=== PATIENT | male | born 1975 | race Caucasian/White ===

== ENCOUNTER → 2018-08-12 | Outpatient (REF) ==
--- NOTE | 2018-08-12 10:47 | REP ---
PARTIAL LUMBAR SPINE, THREE VIEWS: HISTORY: Degenerative disc disease. There is no acute fracture or subluxation. The L3-4 through L5-S1 intervertebral discs are decreased in height consistent with disc degeneration. Osteophytes are present on L1, L4, and L5. IMPRESSION: Degenerative change as described above. Electronically Signed by Hero Argueta MD 08/12/2018 10:58 A
--- NOTE | 2018-08-12 11:07 | REP ---
RIGHT KNEE, FIVE VIEWS: HISTORY: Degenerative joint disease. There is no acute fracture or dislocation. There is mild narrowing of the medial knee joint space and patellofemoral joint space. There is moderate narrowing of the lateral knee joint space. osteophytes are present on the femur, tibia, and patella. IMPRESSION: Degenerative change as described above. Electronically Signed by Hero Argueta MD 08/12/2018 11:09 A
== END ==
LOC: M SMT 10:12
PROVIDERS: ATTEND Internal Medicine
DX: Z02.71 Encounter for disability determination (principal)

== ENCOUNTER → 2024-05-11 | Outpatient (REF) | LOC: M PLAIMG 12:55 | PROVIDERS: ATTEND Internal Medicine | DX: M54.50 Low back pain, unspecified (principal); M47.896 Other spondylosis, lumbar region ==